=== PATIENT | female | born 1985 | race Caucasian/White ===

== ENCOUNTER 2017-12-16 10:19 | Emergency (ER) | payer SELFPAY ==
[~2017-12-16] VITALS: Ht 154.9 cm; Wt 67.6 kg
[~2017-12-16 10:19] MED LIST: CIPRO500 MG PO; NORCO1 TA2 PO
[2017-12-16 10:39] VITALS: Ht 154.9 cm; Wt 67.6 kg
[2017-12-16 12:30] VITALS: BP 115/68
== END 2017-12-16 12:30 | disposition home or self-care (01) ==
LOC: ED 10:19
DX: O9A.211 Injury, poisoning and certain other consequences of external causes complicating pregnancy, first trimester (principal); S09.90XA Unspecified injury of head, initial encounter; Z3A.01 Less than 8 weeks gestation of pregnancy

== ENCOUNTER 2018-04-11 01:58 | Emergency (ER) | payer MEDICAID ==
[~2018-04-11] VITALS: Ht 152.4 cm; Wt 75.7 kg
[2018-04-11 02:13] VITALS: Ht 152.4 cm; Wt 75.7 kg
[2018-04-11 03:06] VITALS: BP 132/85
== END 2018-04-11 03:05 | disposition home or self-care (01) ==
LOC: ED 01:58
DX: O23.42 Unspecified infection of urinary tract in pregnancy, second trimester (principal); Z3A.20 20 weeks gestation of pregnancy
CPT/HCPCS: J0696; J2001

== ENCOUNTER 2019-10-20 23:59 | Emergency (ER) | payer SELFPAY ==
[~2019-10-20] VITALS: Ht 154.9 cm; Wt 71.4 kg
[2019-10-21 04:41] VITALS: BP 105/66
== END 2019-10-21 04:41 | disposition home or self-care (01) ==
LOC: ED 23:59
DX: B34.9 Viral infection, unspecified (principal)
CPT/HCPCS: 87804; J1100

== ENCOUNTER 2020-01-25 13:55 | Emergency (ER) | payer MEDICAID ==
[~2020-01-25] VITALS: Ht 157.5 cm; Wt 72.1 kg
[2020-01-25 14:00] VITALS: Ht 157.5 cm; Wt 72.1 kg
[2020-01-25 15:26] VITALS: BP 135/89
== END 2020-01-25 15:26 | disposition home or self-care (01) ==
LOC: ED 13:55
DX: F41.9 Anxiety disorder, unspecified (principal)

== ENCOUNTER 2020-04-24 13:52 | Emergency (ER) | payer MEDICAID, SELFPAY ==
[~2020-04-24] VITALS: Ht 154.9 cm; Wt 68.9 kg
[2020-04-24 15:11] VITALS: Ht 154.9 cm; Wt 68.9 kg
[2020-04-24 17:21] VITALS: BP 130/74
== END 2020-04-24 16:20 | disposition home or self-care (01) ==
LOC: ED 13:52
DX: R06.02 Shortness of breath (principal); R53.1 Weakness; R51 Headache; F17.210 Nicotine dependence, cigarettes, uncomplicated; Z20.828 Contact with and (suspected) exposure to other viral communicable diseases; Z76.0 Encounter for issue of repeat prescription
CPT/HCPCS: Q0092; U0003-CS